=== PATIENT | male | born 1980 | race Caucasian/White ===

== ENCOUNTER 2023-12-14 14:57 | Outpatient (AMB) | payer BC, SELFPAY ==
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
[2023-12-14 15:14] VITALS: BP 150/88; PULSE 71; TEMP 36.8; O2SAT 97; BMI 36.3
== END 2023-12-14 15:44 | disposition home or self-care (01) ==
PROVIDERS: Visit Provider Physician Assistant Medical
DX: M54.50 Low back pain, unspecified (principal); G89.29 Other chronic pain; I10 Essential (primary) hypertension; F41.1 Generalized anxiety disorder; F32.A Depression, unspecified
CPT/HCPCS: 99214

== ENCOUNTER 2024-01-13 07:34 | Outpatient (REF) | payer BC, SELFPAY ==
[2024-01-13 11:16] LABS: Hematocrit 41.9 % (42.0-52.0); Hemoglobin 14.3 g/dl (14.0-18.0); Mean Corpuscular HGB Conc 34.1 g/dl (31.0-36.0); Mean Corpuscular Hemoglobin 29.3 pg (27.0-33.0); Mean Corpuscular Volume 85.9 fL (80.0-98.0); Mean Platelet Volume 10.7 fL (9.4-12.4); Platelet Count 220 X10*3/uL (160-400); Red Blood Count 4.88 X10*6/uL (4.60-5.80); Red Cell Distribution Width 12.2 % (11.0-16.0); White Blood Count 5.6 X10*3/uL (4.8-10.8)
[2024-01-13 11:43] LABS: Alanine Aminotransferase 63 U/L (0-40); Albumin Level 4.3 g/dL (3.5-5.0); Alkaline Phosphatase 78 U/L (39-117); Anion Gap 13 (12-20); Aspartate Amino Transferase 27 U/L (5-37); Bilirubin Total 0.8 mg/dL (0.0-1.0); Blood Urea Nitrogen 14 mg/dL (9-16); Calcium 9.5 mg/dL (8.4-10.2); Carbon Dioxide 29 mmol/L (22-29); Chloride 103 mmol/L (96-108); Cholesterol 196 mg/dL (<200); Estimated Glomerular Filt Rate > 60; Glucose Random 134 mg/dL (60-115); HDL Cholesterol 53 mg/dL (>40); LDL Cholesterol Calculated 114 mg/dL (<100); Potassium 3.9 mmol/L (3.3-5.1); Sodium 141 mmol/L (135-145); Total Protein 7.4 g/dL (6.5-8.0); Triglycerides 149 mg/dL (<150)
[2024-01-13 11:48] LABS: Creatinine Urine 110.64 mg/dL; Microalbum/Creatinine Ratio Ur 14.4 ug/mg cr (<30)
[2024-01-13 11:49] LABS: Prostate Specific Antigen Scr 0.59 ng/mL (<0.05-4.0)
[2024-01-19 14:18] LABS: Testosterone, Free 46.8 pg/mL (35.0-155.0); Testosterone, Total 225 ng/dL (250-1100)
== END 2024-01-13 07:35 | disposition home or self-care (01) ==
LOC: HO.10HDL 07:34
PROVIDERS: Visit Provider Physician Assistant Medical
DX: F41.9 Anxiety disorder, unspecified (principal); I10 Essential (primary) hypertension; M54.9 Dorsalgia, unspecified; G89.29 Other chronic pain; Z13.6 Encounter for screening for cardiovascular disorders; E66.9 Obesity, unspecified; F32.A Depression, unspecified; Z12.5 Encounter for screening for malignant neoplasm of prostate
CPT/HCPCS: 36415; 80053; 80061; 82043; 82570; 84153; 84402; 84403; 84443; 85027

== ENCOUNTER 2024-01-14 09:07 | Outpatient (AMB) | payer BC, SELFPAY ==
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
[2024-01-14 09:29] VITALS: BP 145/82; PULSE 86; O2SAT 96; BMI 36.3
== END 2024-01-14 10:16 | disposition home or self-care (01) ==
PROVIDERS: Visit Provider Internal Medicine
DX: R73.09 Other abnormal glucose (principal); I10 Essential (primary) hypertension; M54.50 Low back pain, unspecified; G89.29 Other chronic pain
CPT/HCPCS: 83036; 99214

== ENCOUNTER 2024-03-14 15:44 | Outpatient (AMB) | payer BC, SELFPAY ==
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
[2024-03-14 15:51] VITALS: BP 136/70; PULSE 73; RESP 16; O2SAT 98; BMI 23.0
== END 2024-03-14 16:27 | disposition home or self-care (01) ==
PROVIDERS: PCP Internal Medicine; Visit Provider Internal Medicine
DX: R00.2 Palpitations (principal); E11.9 Type 2 diabetes mellitus without complications

== ENCOUNTER → 2024-03-14 15:44 | Outpatient (BNVA) | payer BC, SELFPAY | PROVIDERS: Visit Provider Internal Medicine ==

== ENCOUNTER → 2024-03-21 09:38 | Outpatient (REF) | payer BC, SELFPAY ==
--- NOTE | 2024-03-21 09:47 | HM_ITS ---
* Total monitoring time 1 day. * Underlying rhythm is sinus with an average rate of 86/Min. * Rare supraventricular ectopy. One isolated ventricular ectopic beat. * No significant pauses or high-grade AV blocks. * No patient markers or diary events. MTDD
== END ==
LOC: HO.CARD 09:38
PROVIDERS: PCP Internal Medicine; Visit Provider Internal Medicine
DX: E11.9 Type 2 diabetes mellitus without complications (principal); I49.1 Atrial premature depolarization
CPT/HCPCS: 93225

== ENCOUNTER → 2024-03-21 09:47 | Outpatient (BNV) | payer BC, SELFPAY | PROVIDERS: PCP Internal Medicine; Visit Provider Internal Medicine | DX: I47.10 Supraventricular tachycardia, unspecified (principal) | CPT/HCPCS: 93227 ==

== ENCOUNTER 2024-03-28 09:01 | Outpatient (AMB) | payer BC, SELFPAY ==
--- NOTE | 2024-03-28 09:03 | A.OFFVIS_ITS ---
Intake Visit Reasons: low testosterone Intake Note: New Patient presents for initial visit for Urology Medications: Blood Thinner: Mold Checker Required: No Accompanied by: Self / Same As Patient Allergies No Known Allergies Allergy (Verified 03/28/24 10:16) Medication List - Last Reconciled 03/28/24 by BANG Peña- bupropion HCl XL 300 mg PO DAILY epinephrine (EpiPen) 0.3 mg IM Q4H PRN losartan 50 mg PO DAILY Mounjaro (tirzepatide) 2.5 mg (0.5 mL) subcut QWEEK NS oxycodone 5 mg PO Q6H PRN oxycodone myristate CR-ER (Xtampza ER) 27 mg PO BID 28 days sertraline 50 mg PO DAILY HPI Comments Details: Eloy is a very pleasant 43-year-old male patient of Dr. Saenz. He has a past medical history of anxiety, depression, hypertension, and back pain. He presents to the office today as a new patient for hypogonadism. In discussion with the patient today he reports noting over the last 1-2 years increase in fatigue and overall mood at which time he was started on medications for depression. He reports feeling this was helpful initially however continues with fatigue and overall decreased mood at which time his PCP ordered a testosterone level and recommendations were made for urology referral for further assessment evaluation. These results were reviewed with the patient today. 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 He otherwise denies any bothersome urinary issues. In office urinalysis results reviewed with the patient today. He denies urinary urgency, urinary frequency, incontinence, nocturia, hematuria, dysuria, foul smelling urine, changes to urinary stream, flank pain, fever, and or chills. He is happy with his current voiding parameters. We discussed at length potential causes of borderline low testosterone as well as further treatment options. We discussed further workup to include LH, prolactin, FSH, SHBG, estradiol, PSA, and testosterone free and total for further assessment evaluation. We discussed lifestyle modifications to assist with borderline low testosterone. He otherwise offers no other issues or concerns at this time. [facility] Medical History Depressive disorder Anxiety disorder Hypertension Chronic back pain Surgical History History of surgery on left wrist History of tonsillectomy Family History Father Alcohol abuse Hypertension TIA (transient ischemic attack) Mother COPD mixed type Maternal Grandmother Diabetes Maternal Grandfather Alcohol abuse Heart attack Paternal Grandfather Heart attack Paternal Aunt Heart attack Social History Housing: House Patient Tobacco Use Status: Never used Tobacco e-Cigarette/Vaping Use: Currently Using Second Hand Smoke Exposure: No service: No Current occupational status: employed 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 Current occupational exposures/hazards: No Cognitive needs: No Hearing needs: No Vision needs: Yes Review of Systems Const All systems reviewed & are unremarkable except as noted in HPI and below Physical Exam Const General: cooperative, healthy appearing, comfortable, no acute distress, well developed, alert and awake Orientation/consciousness: patient oriented x3 Limitations: no limitations HEENT Head: Yes normal to inspection, Yes normocephalic and Yes atraumatic Ears: hearing grossly normal bilaterally Eyes General: appearance normal, both eyes and all related structures Neck Neck: Yes normal visual inspection and Yes trachea midline Chest Chest palpation & inspection: normal inspection of the chest Resp Effort & Inspection: normal respiratory effort and able to speak in complete sentences Cardio Rate: regular rate GI Inspection: Yes normal to inspection General: Yes no CVA tenderness Back/Spine/Pelvis Back: no CVA tenderness Skin General skin exam: no rashes or lesions noted Neuro General: patient oriented x3 Extrem General: Yes normal to inspection Psych Appearance: grossly normal and well kempt Mental Status: mental status grossly normal Speech and movement: Normal speech and movement present and Clear speech present Affect: normal affect Attitude: cooperative Thought process: Normal thought process present Thought content: Normal thought content present Insight: Fair insight present (Psych) Judgement: Fair judgement present (Psych) Results AMB Urinalysis, Automated UA Leukoctes 0 Terence/uL Last Edit by Mitch Alonso on 03/28/24 09:17 UA Nitrite Last Edit by Mitch Alonso on 03/28/24 09:17 UA Urobilinogen 0.2 mg/dL Last Edit by Mitch Alonso on 03/28/24 09:17 UA Protein 15 mg/dL Last Edit by Mitch Alonso on 03/28/24 09:17 UA pH 6.5 Last Edit by Mitch Alonso on 03/28/24 09:17 UA Blood 0 Jared/uL Last Edit by Mitch Alonso on 03/28/24 09:17 UA Specific Sanders 1.015 Last Edit by Mitch Alonso on 03/28/24 09:17 UA Ketone Negative Last Edit by Mitch Alonso on 03/28/24 09:17 UA Bilirubin 0 mg/dL Last Edit by Mitch Alonso on 03/28/24 09:17 UA Glucose 0 mg/dL Last Edit by Mitch Alonso on 03/28/24 09:17 Results Reviewed Results Reviewed: Laboratory Last Values Urine pH (Auto) 6.5 03/28/24 09:14 Specific Sanders (Auto) 1.015 03/28/24 09:14 Urine Protein (Auto) 15 mg/dL 03/28/24 09:14 Glucose (UA)(Auto) 0 mg/dL 03/28/24 09:14 Urine Ketones (Auto) Negative 03/28/24 09:14 Urine Blood (Auto) 0 Jared/uL 03/28/24 09:14 Urine Bilirubin (Auto) 0 mg/dL 03/28/24 09:14 Urine Urobilinogen (Auto) 0.2 mg/dL 03/28/24 09:14 Leukocyte Esterase (Auto) 0 Terence/uL 03/28/24 09:14 Assessment & Plan Assessment & Plan (1) Low testosterone: Code(s): R79.89 - Other specified abnormal findings of blood chemistry Category: Medical Plan In office urinalysis results reviewed with the patient today; as noted above. Recent testosterone results reviewed with the patient today; as noted above. We discussed at length lifestyle modifications to assist with borderline low testosterone. We discussed potential causes of borderline low testosterone. Will obtain LH, prolactin, SHBG, FSH, estradiol, testosterone free and total for further assessment evaluation. We discussed trial of low-dose Cialis in the meantime however he declines at this time. He denies any bothersome urinary issues. He reports be happy with current voiding parameters. Follow-up in 1 month with labs to be completed prior; or sooner with any issues, concerns, and or questions. Orders: Orders Lutenizing Hormone Today R79.89 - Other specified abnormal findings of blood chemistry Prolactin Today R79.89 - Other specified abnormal findings of blood chemistry Prostate Specific Antigen Today R79.89 - Other specified abnormal findings of blood chemistry Sex Hormone Binding Globulin Today R79.89 - Other specified abnormal findings of blood chemistry AMB Urinalysis Automated Today Z13.9 - Encounter for screening, unspecified Testosterone, Free/Total Today R79.89 - Other specified abnormal findings of blood chemistry Follicle Stimulating Hormone Today R79.89 - Other specified abnormal findings of blood chemistry Estradiol Ultra Sensitive Today E29.1 - Testicular hypofunction, R79.89 - Other specified abnormal findings of blood chemistry Patient Instructions: The patient had an opportunity to ask questions regarding the treatment plan. All questions were answered. Physical exam, labs, and imaging were discussed and reviewed in detail. As well as risks, benefits, and discussion of treatment choices. No major barriers to understanding were identified. The patient expressed understanding and agreement with the above treatment plan. The patient was made aware they should contact our office by phone for worsening of their current condition, the appearance of new symptoms, or with any questions or concerns. Compliance is encouraged with any medications and follow up testing that is ordered. It is a privilege to be allowed the opportunity to participate in? your urological care.? Again, if you have any questions or concerns If you have any questions or concerns please do not hesitate to contact me. The office is [phone]. This note is constructed using voice recognition software. While every effort has been made to ensure accuracy fruit harvester machine operator errors may have been included. Yours sincerely, MINH Peña Coding Level of Care Code New Pt Level 3 (14658) Diagnoses Low testosterone R79.89
== END 2024-03-28 09:27 | disposition home or self-care (01) ==
PROVIDERS: Visit Provider Nurse Practitioner Family
DX: R79.89 Other specified abnormal findings of blood chemistry (principal); Z13.9 Encounter for screening, unspecified
CPT/HCPCS: 99203

== ENCOUNTER → 2024-03-28 09:01 | Outpatient (BNVA) | payer BC, SELFPAY | PROVIDERS: Visit Provider Nurse Practitioner Family | DX: E29.1 Testicular hypofunction (principal) | CPT/HCPCS: 81003 ==

== ENCOUNTER 2024-03-29 14:38 | Outpatient (AMB) | payer BC, SELFPAY ==
--- NOTE | 2024-03-29 14:48 | A.OFFVIS_ITS ---
Intake Intake Visit Reasons: DM-conf Pharmaceutical Physician Required: No Accompanied by: Self / Same As Patient Allergies No Known Allergies Allergy (Verified 03/28/24 10:16) HPI Comprehensive Diabetes Asmnt Most Recent Diabetes Results: Microalb/Creat Ratio 14.4 ug/mg cr (<30) 01/13/24 Cholesterol 196 mg/dL (<200) 01/13/24 HDL Cholesterol 53 mg/dL (>40) 01/13/24 Triglycerides 149 mg/dL (<150) 01/13/24 Creatinine 0.87 mg/dL (0.5-1.4) 01/13/24 Blood Urea Nitrogen 14 mg/dL (9-16) 01/13/24 Sodium 141 mmol/L (135-145) 01/13/24 Potassium 3.9 mmol/L (3.3-5.1) 01/13/24 Chloride 103 mmol/L (96-108) 01/13/24 Carbon Dioxide 29 mmol/L (22-29) 01/13/24 Calcium 9.5 mg/dL (8.4-10.2) 01/13/24 AST 27 U/L (5-37) 01/13/24 ALT 63 U/L (0-40) H 01/13/24 Total Protein 7.4 g/dL (6.5-8.0) 01/13/24 Albumin 4.3 g/dL (3.5-5.0) 01/13/24 [facility] Medical History Depressive disorder Anxiety disorder Hypertension Chronic back pain Surgical History History of surgery on left wrist History of tonsillectomy Family History Father Alcohol abuse Hypertension TIA (transient ischemic attack) Mother COPD mixed type Maternal Grandmother Diabetes Maternal Grandfather Alcohol abuse Heart attack Paternal Grandfather Heart attack Paternal Aunt Heart attack Social History Housing: House Patient Tobacco Use Status: Never used Tobacco e-Cigarette/Vaping Use: Currently Using Second Hand Smoke Exposure: No service: No Current occupational status: employed 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 2= needs review? 3= comprehend keep point? 4= demonstrates understanding/ competent? NC= Not Covered Topics Learning Objective: Initial visit Initial or post srvc Initial or post srvc Initial or post srvc Initial or post srvc Initial or post srvc Post srvc Comments Pre Edu-assessment/plan Outcome or reassess Outcome or reassess Outcome or reassess Outcome or reassess Outcome or reassess Outcome or reassess Diabetes pathophysiology 1 Healthy eating 2 Being active 2 Taking medication 2 Monitoring glucose 1 Acute complication 1 Chronic complicated 1 Lifestyle and healthy coping 1 Diabetes distress in support 1 ?Diabetes pathophysiology: ?Defined diabetes med identify own type of diabetes; list 3 options for treating diabetes Healthy eating: ?Described effect of type, amount and ?timing of food on blood glucose; list 3 methods for planning meal Being active: ?State effect of exercise on blood glucose level Taking medication: ?State effect of diabetes medications on diabetes; name diabetes medications taking, action and side effects Monitoring glucose: ?Identify recommended blood glucose targets and personal target Acute complication: ?List symptoms and treatment of hyper and hypoglycemia, DKA, sick day guidelines and guidelines for severe weather or situations of crisis and diabetes supply manage Chronic complication: ?To find the relationship of blood glucose levels to long- term complications of diabetes in screening and preventative measures Lifestyle and healthy coping: ?Described lifestyle and healthy coping strategies to rule out diabetes self-management Diabetes to stress and support: ?Recognize Diabetes to stress and be able to identified support options Learning objectives: The patient was provided with verbal and written education on the following topics as outlined below. The patient met all learning objectives and was able to verbalize understanding and provide teach back of education topics discussed . The patient was provided with the opportunity to ask questions and all questions were answered. Patient Assessment Patient questions/concerns, patient recently diagnosed with type 2 diabetes with A1c of 6.7% on 01/14/2024 Is on Mounjaro 2.5 mg weekly, denies GI side effects Lives with his 3 children Reports his does food shopping and they share cooking What is Diabetes? Pathophysiology How the body produces and uses insulin Identify type of DM Risk factors Signs of Diabetes Brief overview of Diabetes Management Monitoring blood sugar Following a meal plan Regular exercise Maintaining a healthy weight Taking medication as needed Members of the care team (PCP, RN, MA, RD, CDE, helpdesk administrator) Blood glucose monitoring When/how often to test Target blood sugar ranges Introduction to Nutrition Importance of healthy diet in managing DM Diet is personalized to individual preference Review patient?s regular diet/food preferences Who prepares meals/does food shopping/ Dining out?/ Barriers? How diet effects glucose Eating 3 balanced meals a day with small, healthy snacks between meals Review food groups Carbohydrates: What is a carbohydrate/Which food/food groups are considered carbohydrates Effect of carbohydrates on blood glucose Portion sizes Reading food labels Basic carb counting (if applicable per nursing assessment) Plate method Meal planning Recommendations: Follow plate method, consistent carbs and read nutritional labels. Smart Goal: Patient will test glucose 2 times a week between now and next visit Educational Materials: The patient was provided with the following written educational materials: Planning Healthy Meals Handout Patient Response to instructions: Comprehension of Instructions: Good Readiness to make changes: Contemplation How confident they feel about making changes: Positive Portions of this note were created using voice recognition software, please excuse any words or phrases that may have been misinterpreted. Patient Instructions: Include regular daily activity. ADA recommends 30 minutes of exercise 5 days a week. Weight loss talk to PCP or Induction Machine Operator before starting new plan. Test blood sugar as directed; Fasting and 2hpp largest meal. Watch trends in results. Utilize results and to assess how food, physical activity and medications affect blood sugar results. Bring glucometer or CGM to next visit. Be knowledgeable about diabetes medication, its action, side effects, efficacy, toxicity, prescribed dosage, appropriate timing and frequency of administration, effect of missed and delayed doses and instructions for storage, travel and safety. Problem solving techniques to monitor hypo/hyperglycemia episodes and treatments. Reduce risk reduction behaviors, smoking cessation, regular eye, foot and dental examinations. Follow-up with tobacco educator in 2 months Coding Level of Care Code Est Pt Level 1 (87628) Diagnoses Controlled type 2 diabetes mellitus without complication, without long-term current use of insulin E11.9 Diabetes mellitus terminal system operator insulin use: without terminal system operator use Diabetes mellitus complication status: without complication
== END 2024-03-29 15:26 | disposition home or self-care (01) ==
PROVIDERS: PCP Internal Medicine; Visit Provider Registered Nurse Diabetes Educator
DX: E11.9 Type 2 diabetes mellitus without complications (principal)

== ENCOUNTER → 2024-03-29 14:38 | Outpatient (BNVA) | payer BC, SELFPAY | PROVIDERS: PCP Internal Medicine; Visit Provider Registered Nurse Diabetes Educator | DX: E11.9 Type 2 diabetes mellitus without complications (principal) | CPT/HCPCS: 99211 ==

== ENCOUNTER 2024-03-30 09:09 | Outpatient (REF) | payer BC, SELFPAY ==
[2024-03-30 11:30] LABS: Prostate Specific Antigen 0.69 ng/mL (<0.05-4.0)
[2024-04-01 00:20] LABS: Follicle Stimulating Hormone 6.2 mIU/mL (1.4-12.8); Lutenizing Hormone 5.4 mIU/mL (1.5-9.3); Prolactin 3.8 ng/mL (2.0-18.0); Sex Hormone Binding Globulin 26 nmol/L (10-50)
[2024-04-05 22:53] LABS: Testosterone, Free 47.9 pg/mL (35.0-155.0); Testosterone, Total 247 ng/dL (250-1100)
[2024-04-05 23:03] LABS: Estradiol Ultra Sensitive 15 pg/mL (< OR = 29)
== END 2024-03-30 09:10 | disposition home or self-care (01) ==
LOC: HO.10HDL 09:09
PROVIDERS: Visit Provider Nurse Practitioner Family
DX: R79.89 Other specified abnormal findings of blood chemistry (principal); E29.1 Testicular hypofunction; Z12.5 Encounter for screening for malignant neoplasm of prostate
CPT/HCPCS: 36415; 82670; 83001; 83002; 84146; 84153; 84270; 84402; 84403

== ENCOUNTER 2024-04-18 15:55 | Outpatient (AMB) | payer BC, SELFPAY ==
--- NOTE | 2024-04-18 15:56 | A.OFFVIS_ITS ---
Intake Visit Reasons: 1m/labs(set) Intake Note: Patient presents today for follow up on: low testosterone and lab results PSA:0.69; Testosterone: 247; Free Testosterone: 47.9 Urology Medications: none Blood Thinner:none Label Sewer Required: No Accompanied by: Self / Same As Patient Allergies No Known Allergies Allergy (Verified 04/18/24 20:52) Medication List - Last Reconciled 04/18/24 by MINH Peña bupropion HCl XL 300 mg PO DAILY clomiphene citrate 100 mg (2 x 50 mg) PO DAILY 7 days epinephrine (EpiPen) 0.3 mg IM Q4H PRN losartan 50 mg PO DAILY Mounjaro (tirzepatide) 2.5 mg (0.5 mL) subcut QWEEK NS oxycodone 5 mg PO Q6H PRN oxycodone myristate CR-ER (Xtampza ER) 27 mg PO BID 28 days sertraline 50 mg PO DAILY HPI Comments Details: Eloy is a very pleasant 44-year-old male patient of Dr. Saenz. He has a past medical history of anxiety, depression, hypertension, and back pain. He is being followed up on today via video telehealth. Of note, patient was seen approximately 1 month ago as a new patient for hypogonadism at which time hypogonadism labs were ordered for further assessment evaluation. These labs reviewed with the patient today as noted below... Testosterone 01/11 225, 04/13 247 Free testosterone 01/11 46.8, 04/13 47.9 PSA 01/11 0.6, 04/13 0.7 Estradiol 04/13 15 FSH 04/13 6.2 LH 04/13 5.4 Prolactin 04/13 3.8 SHBG 04/13 26 We discussed hypogonadism as well as borderline low LH. We discussed at length potential causes for these findings. We discuss trial of clomid. He continues to report fatigue and overall decreased mood. He reports recently starting Mounjaro and has lost approximately 25 lb. He continues to attempt to focus on his health as he has recently been diagnosed with diabetes. He otherwise denies any bothersome urinary issues. He denies urinary urgency, urinary frequency, incontinence, nocturia, hematuria, dysuria, foul smelling urine, changes to urinary stream, flank pain, fever, and or chills. He is happy with his current voiding parameters. We discussed at length potential causes of borderline low testosterone as well as further treatment options. We discussed lifestyle modifications to assist with borderline low testosterone. He otherwise offers no other issues or concerns at this time. [facility] Medical History Depressive disorder Anxiety disorder Hypertension Chronic back pain Surgical History History of surgery on left wrist History of tonsillectomy Family History Father Alcohol abuse Hypertension TIA (transient ischemic attack) Mother COPD mixed type Maternal Grandmother Diabetes Maternal Grandfather Alcohol abuse Heart attack Paternal Grandfather Heart attack Paternal Aunt Heart attack Social History Housing: House Patient Tobacco Use Status: Never used Tobacco e-Cigarette/Vaping Use: Currently Using Second Hand Smoke Exposure: No service: No Current occupational status: employed 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 Current occupational exposures/hazards: No Cognitive needs: No Hearing needs: No Vision needs: Yes Review of Systems Const All systems reviewed & are unremarkable except as noted in HPI and below Physical Exam Const General: cooperative, healthy appearing, comfortable, no acute distress, well developed and alert Orientation/consciousness: patient oriented x3 Resp Effort & Inspection: normal respiratory effort and able to speak in complete sentences Neuro General: patient oriented x3 Psych Appearance: grossly normal and well kempt Mental Status: mental status grossly normal Speech and movement: Clear speech present Affect: normal affect Attitude: cooperative Thought process: Normal thought process present Thought content: Normal thought content present Insight: Fair insight present (Psych) Judgement: Fair judgement present (Psych) Telehealth Telehealth Telehealth Platform: [facility] Location of provider rendering services: practice address Location of patient: address on file Patient Identification confirmed using: Name, : Yes Telehealth method: video Patient verbally consented to treatment: Yes Patient verbally consented to billing insurance company: Yes Patient informed of any privacy concerns related to visit: Yes Minutes spent on Phone/Video with Pt.: 20 Assessment & Plan Assessment & Plan (1) Low testosterone: Code(s): R79.89 - Other specified abnormal findings of blood chemistry Category: Medical (2) Hypogonadism in male: Code(s): E29.1 - Testicular hypofunction Category: Medical Plan Recent hypogonadal labs reviewed with the patient today; as noted above. Discussed at length potential causes of hypogonadism. We discussed at length lifestyle modifications to assist with borderline low testosterone. We discussed potential causes of borderline low testosterone. Start clomid as discussed and prescribed. Discussed importance of obtaining labs status post completion of clomid; will obtain testosterone free and total and LH. He denies any bothersome urinary issues. He reports be happy with current voiding parameters. Follow-up in 1 month with labs to be completed prior; or sooner with any issues, concerns, and or questions. Orders: Orders Testosterone, Free/Total 1 Week E11.69 - Type 2 diabetes mellitus with other specified complication, N52.1 - Erectile dysfunction due to diseases classified elsewhere Lutenizing Hormone 1 Week E29.1 - Testicular hypofunction, R79.89 - Other specified abnormal findings of blood chemistry Medications: New clomiphene citrate Take 2 tablets daily for 7 days and complete lab work on day 8 100 mg (2 x 50 mg) PO DAILY 7 days 14 tabs 0RF E29.1 - Testicular hypofunction, R79.89 - Other specified abnormal findings of blood chemistry Patient Instructions: The patient had an opportunity to ask questions regarding the treatment plan. All questions were answered. Physical exam, labs, and imaging were discussed and reviewed in detail. As well as risks, benefits, and discussion of treatment choices. No major barriers to understanding were identified. The patient expressed understanding and agreement with the above treatment plan. The patient was made aware they should contact our office by phone for worsening of their current condition, the appearance of new symptoms, or with any questions or concerns. Compliance is encouraged with any medications and follow up testing that is ordered. It is a privilege to be allowed the opportunity to participate in? your urological care.? Again, if you have any questions or concerns If you have any questions or concerns please do not hesitate to contact me. The office is [phone]. This note is constructed using voice recognition software. While every effort has been made to ensure accuracy modern dancer errors may have been included. Yours sincerely, MINH Peña Coding Level of Care Code Tele Est Pt Level 4 (72276) Diagnoses Low testosterone R79.89 Hypogonadism in male E29.1
== END 2024-04-18 16:30 | disposition home or self-care (01) ==
LOC: HO.HUSH 15:55
PROVIDERS: PCP Internal Medicine; Visit Provider Nurse Practitioner Family
DX: R79.89 Other specified abnormal findings of blood chemistry (principal); E29.1 Testicular hypofunction
CPT/HCPCS: 99214

== ENCOUNTER → 2024-04-18 15:55 | Outpatient (BNVA) | payer BC, SELFPAY | PROVIDERS: PCP Internal Medicine; Visit Provider Nurse Practitioner Family ==

== ENCOUNTER 2024-05-13 09:44 | Outpatient (REF) | payer BC, SELFPAY ==
[2024-05-15 10:04] LABS: Lutenizing Hormone 4.9 mIU/mL (1.5-9.3)
[2024-05-20 18:42] LABS: Testosterone, Free 43.8 pg/mL (35.0-155.0); Testosterone, Total 371 ng/dL (250-1100)
== END 2024-05-13 09:45 | disposition home or self-care (01) ==
LOC: HO.LAB 09:44
PROVIDERS: PCP Internal Medicine; Visit Provider Nurse Practitioner Family
DX: E11.69 Type 2 diabetes mellitus with other specified complication (principal); N52.1 Erectile dysfunction due to diseases classified elsewhere; R79.89 Other specified abnormal findings of blood chemistry; E29.1 Testicular hypofunction
CPT/HCPCS: 36415; 83002; 84402; 84403

== ENCOUNTER 2024-06-07 15:43 | Outpatient (AMB) | payer BC, SELFPAY ==
--- NOTE | 2024-06-07 15:44 | A.OFFVIS_ITS ---
Intake Visit Reasons: lab results Intake Note: Patient is present for LAB RESULTS Urology Medication:NONE Antibiotic Allergy:NONE Blood Thinner:NONE Developer Programmer Required: No Allergies No Known Allergies Allergy (Verified 06/07/24 15:52) Medication List - Last Reconciled 06/07/24 by BANG Peña- bupropion HCl XL 300 mg PO DAILY epinephrine (EpiPen) 0.3 mg IM Q4H PRN losartan 50 mg PO DAILY Mounjaro (tirzepatide) 2.5 mg (0.5 mL) subcut QWEEK NS oxycodone 5 mg PO Q6H PRN oxycodone myristate CR-ER (Xtampza ER) 27 mg PO BID 28 days sertraline 50 mg PO DAILY HPI Comments Details: Eloy is a very pleasant 44-year-old male patient of Dr. Saenz. He has a past medical history of anxiety, depression, hypertension, and back pain. He is being followed up on today via video telehealth. Of note, patient was seen approximately 6 weeks ago at which time he was started on clomiphene. Recent labs reviewed with the patient today as noted and trended below.... Testosterone 01/11 225, 04/13 247, 05/14 371 Free testosterone 01/11 46.8, 04/13 47.9, 05/14 43.8 PSA 01/11 0.6, 04/13 0.7 Estradiol 04/13 15 FSH 04/13 6.2 LH 04/13 5.4, 05/14 4.9 Prolactin 04/13 3.8 SHBG 04/13 26 We discussed hypogonadism as well as borderline low LH. We discussed at length potential causes for these findings. We discussed continuing low-dose enclomiphene citrate verses initiation of testosterone. This was discussed at length and risks and benefits of these interventions were discussed. He continues to report fatigue and overall decreased mood. He reports he continues to lose weight intentionally as he is on Mounjaro. He continues to attempt to focus on his health. We discussed correlation of oxycodone and hypogonadism. He otherwise denies any bothersome urinary issues. He denies urinary urgency, urinary frequency, incontinence, nocturia, hematuria, dysuria, foul smelling urine, changes to urinary stream, flank pain, fever, and or chills. He is happy with his current voiding parameters. We discussed at length potential causes of borderline low testosterone as well as further treatment options. We discussed lifestyle modifications to assist with borderline low testosterone. He otherwise offers no other issues or concerns at this time. [facility] Medical History Depressive disorder Anxiety disorder Hypertension Chronic back pain Surgical History History of surgery on left wrist History of tonsillectomy Family History Father Alcohol abuse Hypertension TIA (transient ischemic attack) Mother COPD mixed type Maternal Grandmother Diabetes Maternal Grandfather Alcohol abuse Heart attack Paternal Grandfather Heart attack Paternal Aunt Heart attack Social History Housing: House Patient Tobacco Use Status: Never used Tobacco e-Cigarette/Vaping Use: Currently Using Second Hand Smoke Exposure: No service: No Current occupational status: employed 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 Current occupational exposures/hazards: No Cognitive needs: No Hearing needs: No Vision needs: Yes Review of Systems Const All systems reviewed & are unremarkable except as noted in HPI and below Physical Exam Const General: cooperative, healthy appearing, comfortable, no acute distress, well developed and alert Orientation/consciousness: patient oriented x3 Resp Effort & Inspection: normal respiratory effort and able to speak in complete sentences Neuro General: patient oriented x3 Psych Appearance: grossly normal and well kempt Mental Status: mental status grossly normal Speech and movement: Clear speech present Affect: normal affect Attitude: cooperative Thought process: Normal thought process present Thought content: Normal thought content present Insight: Fair insight present (Psych) Judgement: Fair judgement present (Psych) Telehealth [facility] Location of provider rendering services: practice address Location of patient: address on file Patient Identification confirmed using: Name, : Yes Telehealth method: video Patient verbally consented to treatment: Yes Patient verbally consented to billing insurance company: Yes Patient informed of any privacy concerns related to visit: Yes Minutes spent on Phone/Video with Pt.: 20 Assessment & Plan Assessment & Plan (1) Hypogonadism in male: Code(s): E29.1 - Testicular hypofunction Category: Medical (2) Low testosterone: Code(s): R79.89 - Other specified abnormal findings of blood chemistry Category: Medical Plan Recent hypogonadal labs reviewed with the patient today; as noted above. Discussed at length potential causes of hypogonadism. We discussed at length lifestyle modifications to assist with borderline low testosterone. We discussed potential causes of borderline low testosterone. Continue Clomid; script sent to compounding pharmacy. Will obtain testosterone free and total in the LH in 3 months. He denies any bothersome urinary issues. He reports be happy with current voiding parameters. Follow-up in 3 months with labs to be completed prior; or sooner with any issues, concerns, and or questions. Orders: Orders Testosterone, Free/Total 3 Months E29.1 - Testicular hypofunction Lutenizing Hormone 3 Months E29.1 - Testicular hypofunction Medications: Discontinued clomiphene citrate Take 2 tablets daily for 7 days and complete lab work on day 8 Discontinued Reason: Patient Completed Course 100 mg (2 x 50 mg) PO DAILY 7 days 14 tabs 0RF E29.1 - Testicular hypofunction, R79.89 - Other specified abnormal findings of blood chemistry Patient Instructions: The patient had an opportunity to ask questions regarding the treatment plan. All questions were answered. Physical exam, labs, and imaging were discussed and reviewed in detail. As well as risks, benefits, and discussion of treatment choices. No major barriers to understanding were identified. The patient expressed understanding and agreement with the above treatment plan. The patient was made aware they should contact our office by phone for worsening of their current condition, the appearance of new symptoms, or with any questions or concerns. Compliance is encouraged with any medications and follow up testing that is ordered. It is a privilege to be allowed the opportunity to participate in? your urological care.? Again, if you have any questions or concerns If you have any questions or concerns please do not hesitate to contact me. The office is [phone]. This note is constructed using voice recognition software. While every effort has been made to ensure accuracy fire extinguisher inspector errors may have been included. Yours sincerely, BANG Peña-BEL Coding Level of Care Code Tele Est Pt Level 3 (25766) Diagnoses Hypogonadism in male E29.1 Low testosterone R79.89
== END 2024-06-07 16:30 | disposition home or self-care (01) ==
LOC: HO.HUSH 15:43
PROVIDERS: PCP Internal Medicine; Visit Provider Nurse Practitioner Family
DX: E29.1 Testicular hypofunction (principal); R79.89 Other specified abnormal findings of blood chemistry
CPT/HCPCS: 99213

== ENCOUNTER 2024-07-17 12:16 | Outpatient (AMB) | payer BC, SELFPAY ==
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
== END 2024-07-17 13:07 | disposition home or self-care (01) ==
LOC: HO.HMCFM 12:16
PROVIDERS: PCP Internal Medicine; Visit Provider Internal Medicine
DX: S09.92XA Unspecified injury of nose, initial encounter (principal); E11.9 Type 2 diabetes mellitus without complications

== ENCOUNTER → 2024-07-17 12:16 | Outpatient (BNVA) | payer BC, SELFPAY | PROVIDERS: PCP Internal Medicine; Visit Provider Internal Medicine ==

== ENCOUNTER 2024-09-25 12:52 | Outpatient (AMB) | payer BC, SELFPAY ==
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
[2024-09-25 13:07] VITALS: BP 144/80; PULSE 74; RESP 16; O2SAT 96; BMI 34.8
[2024-09-25 13:14] VITALS: BP 134/76
--- OUTSIDE RECORDS SUMMARY | 2024-09-25 15:13 | XMS_ITS | Data Portability ---
Author Organization [place] - [facility], Allergy Address [address] [address] Care Team Providers Care Wash And Greaser Name Role Phone IdalmisTI GERTRUDIS Referring Provider Assessment Encounter Date Assessment Date Assessment LastModified by Organization Details LastModified Time 08/09/2024 08/09/2024 44 year old male with septal perforation and remote history of intranasal cocaine use in his 20s. Advised him to stop using the Vicks nasal spray. Instructed him to reduce the crusting with salt water rinse twice daily followed by Ponaris emollient. I have ordered vasculitis labwork. I have referred him to Dr. Taylor to see if it is possible to fix this perforation. Patient seen and examined by Dr. Lockett. Sai Wolff PA-C functioned as a scribe for this visit. [email or web address] Not available 08/13/2024 13:26:32 Plan of Treatment Reminders Order Date Submit Date Provider Last Modified By Organization Details Last Modified Time Details Appointments None recorded. Lab unlisted lab - C-anca+P-an ca w/reflex 2024 025 [email or web address] [facility] (Centralized Electronic Ordering - All Locations), Patient Can Go To The Location Of Their Choice, [id number] 09:10:03 myeloperoxi dase, QN, plasma 2024 025 [facility] (Centralized Electronic Ordering - All Locations), Patient Can Go To The Location Of Their Choice, [id number] 15:09:32 ESR (erythrocyt e sedimentati on rate), blood 2024 025 [facility] (Centralized Electronic Ordering - All Locations), Patient Can Go To The Location Of Their Choice, [address] 5 15:09:32 CBC w/ auto diff 2024 025 [email or web address] [facility] (Centralized Electronic Ordering - All Locations), Patient Can Go To The Location Of Their Choice, [id number] 5 15:09:32 ige, total, serum 2024 025 [email or web address] [facility] (Centralized Electronic Ordering - All Locations), Patient Can Go To The Location Of Their Choice, [id number] 5 15:09:32 Referral None recorded. Procedures None recorded. Surgeries None recorded. Imaging None recorded. Medication Orders None recorded. Patient TargetsNo targets recorded. Patient InstructionsNo instructions recorded. Reason for Referral None Reported. Problems Name Problem SNOMED Code Status Onset Date Resolution Date Notes Provider Name and Address Organization Details Recorded Time Perforation of nasal septum [id number] Active 025 SAI WOLFF PA-C [address] [place] [address], [phone] - [facility] 5 11:27:56 Problem Notes None recorded. Medical Equipment None Reported. Medications Name Sig Start Date Stop Date Status Note LastModified by Organization Details LastModified Time sertraline 100 mg tablet TAKE 1 TABLET BY MOUTH EVERY DAY active Not Available Not Available No t Available bupropion HCl SR 100 mg tablet,12 hr sustained-r elease TAKE 1 TAB BY MOUTH EVERY MORNING X 7 DAYS THEN 1 TAB BY MOUTH TWICE A DAY active Not Available Not Available No t Available amoxicillin 875 mg tablet TAKE 1 TABLET BY MOUTH 2 TIMES A DAY FOR 5 DAYS. 08/09 completed Not Available Not Available Not Available losartan 25 mg tablet TAKE 1 TABLET BY MOUTH EVERY DAY active Not Available Not Available No t Available sertraline 25 mg tablet TAKE 1 AND 1/2 TABLETS BY MOUTH EVERY MORNING active Not Available Not Available No t Available metformin ER 500 mg tablet,exte nded release 24 hr TAKE 1 TABLET BY MOUTH EVERY DAY 08/09 completed Not Available Not Available Not Available sertraline 50 mg tablet TAKE 1 + 1/2 TABLETS BY MOUTH EVERY MORNING active Not Available Not Available No t Available Clomid 50 mg tablet 08/09 completed Not Available Not Available Not Available oxycodone 5 mg tablet TAKE 1 TABLET (5 MG) ORALLY EVERY 6 HOURS NEEDED FOR PAIN PARTIAL FILL UPON PATIENT REQUEST. active Not Available Not Available No t Available moxifloxaci n 0.5 % eye drops INSTILL 1 DROP INTO RIGHT EYE 3 TIMES A DAY FOR 7 DAYS active Not Available Not Available No t Available bupropion HCl XL 300 mg 24 hr tablet, extended release TAKE 1 TABLET BY MOUTH EVERY MORNING active Not Available Not Available No t Available Xtampza ER 27 mg capsule sprinkle TAKE 1 CAPSULE BY MOUTH TWICE A DAY WITH A MEAL/FOOD active Not Available Not Available No t Available Mounjaro 5 mg/0.5 mL subcutaneou s pen injector INJECT 1 PEN SUBCUTANE OUSLY WEEKLY active Not Available Not Available No t Available Mounjaro 2.5 mg/0.5 mL subcutaneou s pen injector INJECT 2.5 MG (0.5 ML) SUBCUTANE OUSLY EVERY WEEK FOR 4 WEEKS active Not Available Not Available No t Available Vitals Date Recorded Body height Body mass index (BMI) Body weight Provider Name and Address Organization Details Last Updated DateTime 08/09/2024 185.42 cm 32.7 kg/m2 854209.91 g Esperanza Velazquez [place] - [facility] 08/09/2024 11:06:48 Social History None recorded. Functional Status None recorded. Mental Status None recorded. Family History Nothing Reported. Medical History Condition Response Allergies/Hayfever Y Heart Problems N Anxiety N Tonsil Infections N Emphysema N Migraines Y Thyroid Problems N Glaucoma N Depression Y COPD N Developmental Delay N Nasal or Sinus Problems Y Anemia N Immune System Disorder N Anesthesia Complications N Heart Attack ([place]) N Other Skin Condition N Diabetes Y Rhinitis N Bleeding Disorder N Food Allergy N Arthritis N Hearing Loss N Hyperlipidemia N Cancer N Stroke N Dementia N Nasal polyps N Asthma N Sleep Disorder N GERD/Reflux N High Cholesterol N Liver Disease N Headaches N Fibromyalgia N Hypertension N Speech Delay N Kidney Disease N Past Encounters Encounter ID Performer Location Encounter Start Date Encounter Closed Date Diagnosis/Indication Diagnosis SNOMED-CT Code Diagnosis ICD10 Code Diagnosis Note [id number] PA ALEMAN MD [facility] [address] [place] [address] 08/09/2024 11:02:06 08/09/2024 11:34:46 Perforation of nasal septum [id number] J34.89 Health Concerns Section Related Observation LastModified by Organization Detai ls LastModified Time None Recorded Concern Status LastModified by Organization Details LastModified Time None Recorded Advance Directives Directive None Recorded Payers Encounter Date Sequence Insurance Name Policy Number Policy Ling Covered Member ID Ling Member ID Guarantor Name 08/09/2024 1 [facility] ([facility] [place]) [id number] Kierra Sibleyoine [id number] Eloy Sibleyoine Notes Date Note Type Note Provider Name and Address Organization Details Recorded Time 08/09/2024 text/html 44 year old male presents to the office for evaluation of a septal perforation. He reports that he noticed a hole in his nose a few weeks ago. He has a history of intranasal cocaine use in his 20s but denies any recent cocaine use. He reports that he has recently been using Vicks nasal spray a lot. He reports chronic sinus infections over the years and seasonal allergies. PA LOCKETT MD [address] [place] [address], [place], [phone], [facility] 08/14/2024 12:26:54
== END 2024-09-25 13:44 | disposition home or self-care (01) ==
LOC: HO.HMCFM 12:53
PROVIDERS: PCP Internal Medicine; Visit Provider Internal Medicine
DX: M51.369 Other intervertebral disc degeneration, lumbar region without mention of lumbar back pain or lower extremity pain (principal); E11.9 Type 2 diabetes mellitus without complications; F32.A Depression, unspecified

== ENCOUNTER → 2024-09-25 12:52 | Outpatient (BNVA) | payer BC, SELFPAY | PROVIDERS: PCP Internal Medicine; Visit Provider Internal Medicine | DX: M51.369 Other intervertebral disc degeneration, lumbar region without mention of lumbar back pain or lower extremity pain (principal); E11.9 Type 2 diabetes mellitus without complications; F32.A Depression, unspecified; Z79.891 Long term (current) use of opiate analgesic; Z79.899 Other long term (current) drug therapy | CPT/HCPCS: 96127 ==